=== PATIENT | female | born 2000 | race Caucasian/White ===

== ENCOUNTER 2022-02-03 18:36 | Emergency (ER) | payer OTHER, BC, SELFPAY ==
[2022-02-03 18:44] VITALS: BP 132/90; PULSE 110; RESP 18; TEMP 37.1; O2SAT 99
[2022-02-03] MEDS: Normal Saline 250 ML IV (19:00)
--- NOTE | 2022-02-03 19:00 | DI.RAD_ITS ---
Exam(s) XR PELVIS W OBLIQUES 3V EXAM: XR PELVIS W OBLIQUES 3V CLINICAL HISTORY: trauma TECHNIQUE: COMPARISON: No exams were available for comparison FINDINGS: Three views were obtained. No evidence of acute fracture or dislocation. IMPRESSION: RADIATION DOSE DELIVERED: Total DLP
[2022-02-03] MEDS: Ketorolac 30 MG/ML VIAL IVP (19:33)
--- NOTE | 2022-02-03 20:02 | DI.VRAD_ITS ---
PROCEDURE INFORMATION: Exam: XR Pelvis Exam date and time: 02/03/2022 7:40 PM Age: 21 years old Clinical indication: Other: Trauma TECHNIQUE: Imaging protocol: Radiologic exam of the pelvis. Views: 3 or more views. COMPARISON: No relevant prior studies available. FINDINGS: Bones/joints: Unremarkable. No acute fracture. Soft tissues: Unremarkable. IMPRESSION: No acute findings. Dictated and Authenticated by: Nir Hernandez MD. Ordering:MARISOL Triana MD
--- NOTE | 2022-02-03 20:13 | ED.GENADUL_ITS ---
Discharge Plan Disposition Patient Disposition: HOME Condition: Stable Discharge Details Clinical Impression: Hematoma of labia majora Primary Care Provider: [facility] Provider: Kong Feldman Home Meds and New Rx's Prescriptions: No Action No Known Home Meds Discharge Instructions Instructions: Hematoma (ED) Additional Instructions: Please continue to take ibuprofen 600 mg every 6 hours as needed for pain. You may also gently apply ice to help with some of the swelling and have light activity over the next couple days. Please return immediately to the emergency department for any inability to urinate, worsening swelling, or vaginal symptoms. It is recommended that you follow-up with [facility] for reassessment preferably in 3 days. Please call the office for arrangement of follow-up Referrals: [facility] [Provider Group] - 3 days Discharge Data Discharge Date/Time-TO BE ENTERED AT DEPARTURE: 02/03/22 20:51 Medical Decision Making Approximately an hour and a half prior to arrival patient had a mechanical fall and struck her right inner groin with I-beam. Patient denies any other injury or trauma, loss of conscious or abdominal pain. Physical exam shows significant hematoma that is very tender and swollen to the right labia majora and pelvis. Exam is otherwise unremarkable. We will check urine for and perform pelvic imaging to rule out acute pelvic fracture. Patient offered narcotics and Toradol which she refused the narcotics at this time. Review of radiological imaging and radiologist interpretation shows no acute pelvic fracture. Patient reassessed and states significant improvement of pain but swelling remains. Patient was able to urinate. Spoke with Dr. Beltrán gynecology who recommended patient be placed on NSAIDs, gently apply ice and monitor for any worsening symptoms or inability to urinate which would require return to the emergency department. This was discussed with patient and she is agreeable to this plan of care. 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 After discussion of diagnosis and plan of care patient has no further needs, questions, or concerns and states clear understanding to return to the emergency department for any worsening symptoms. This documentation was generated using [employer] system, please disregard any oddities of phrase or misspellings. HPI General Mode of arrival: ambulatory . Date/Time Provider Initiated Documentation: 02/03/22 18:37 . Limitations to Documentation: no limitations . Information obtained by: patient and RN notes reviewed . History of Present Illness 21 year old F presents to the emergency department with the chief complaint of Trauma to the genitals, described as severe, with intensity rated at 10. Quality is described as aching, and is localized to the genitals. Patient reports no radiation. Patient started experiencing this minute(s) (90) and it has been constant. No relieving factors improve symptom(s), No exacerbating factors reported . Patient notes no other symptoms.. 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 Constitutional Constitutional: Denies headache(s) ENT Ears, Nose, Mouth, and Throat: Denies headache(s) Cardiovascular Cardiovascular: Denies syncope Genitourinary Genitourinary: Reports as per HPI, Denies abnormal vaginal bleeding, Reports difficulty voiding, Denies dysuria, Denies flank pain, Denies urinary incontinence and Denies vaginal discharge Musculoskeletal Musculoskeletal: Denies abnormal gait Neurologic Neurologic: Denies abnormal gait, Denies syncope and Denies headache(s) PFSH All Active Problems (Updated 02/03/22 @ 20:34 by Kong Feldman NP) Hematoma of labia majora (Acute) Social History Smoking/Tobacco Use Status: Current-Occasional Tobacco Type: e-cigarettes Smoking risk assessment performed?: Yes Alcohol Intake: current Alcohol Intake frequency: a few times a week Drug use: Never Substance use type: does not use Do you feel safe at home: Yes Do you feel safe in your relationship?: Yes Exam Const General: cooperative Orientation: alert, awake and oriented x3 Resp Effort & Inspection: normal respiratory effort and able to speak in complete sentences Auscultation: clear to auscultation bilaterally Cardio Rate: regular rate Rhythm: regular rhythm Heart Sounds: S1 normal and S2 normal GI Palpation: soft, no hepatosplenomegaly, not firm, no guarding, no masses, no pulsatile masses, not rigid, no splenomegaly and nontender Auscultation: normal bowel sounds General: other (Exam performed with RN in room) External Female Exam: externally tender, external swelling, ecchymosis and No urethral discharge Back/Spine/Pelvis Pelvis: no pain with anterior-posterior compression, no pain with lateral compression and tenderness over symphysis pubis Neuro General: patient alert, patient awake, patient oriented x3, gait normal and moves all extremities Course Vital Signs Vital signs: Vital Signs Temperature 37.1 C 02/03/22 18:44 Pulse 110 H 02/03/22 18:44 Respiratory Rate 18 02/03/22 18:44 Blood Pressure 132/90 02/03/22 18:44 Pulse Oximetry 99 02/03/22 18:44 Temperature 37.1 C 02/03/22 18:44 Temperature Source Oral 02/03/22 18:44 Pulse 110 H 02/03/22 18:44 Respiratory Rate 18 02/03/22 18:44 Respiratory Effort Non-Labored 02/03/22 18:47 Blood Pressure 132/90 02/03/22 18:44 Blood Pressure Position Sitting 02/03/22 18:44 Pulse Oximetry 99 02/03/22 18:44 Oxygen Delivery Method Room Air 02/03/22 18:44 Oxygen Flow Rate 0 02/03/22 18:44 Lab/Test Results Lab/Test Results: POC- Test(urine) Negative PAWSS Have you Been Recently Intoxicated or Drunk Within the Last 30 days?: No Have you Ever Experienced Previous Episodes of Alcohol Withdrawal?: No Have you ever Experienced Withdrawal Seizures?: No Have you ever Experienced Delirium Tremens(DT)s?: No Have you ever undergone Alcohol Rehabilitation Treatment (i.e, inpt ot outpatient treatment programs)?: No Have you ever Experienced Blackouts?: No Have you ever Combined Alcohol with other Downers within the last 90 days?: No Have you ever Combined Alcohol with any other Substance of Abuse during the last 90 days?: No Positive Blood Alcohol level on Presentation? [PCS.BAL]: No Evidence of Increased Autonomic Activity (i.e. HR>120, tremor, sweating, agitation, nausea)?: No Result: 0
[2022-02-03] MEDS: Ibuprofen 600 MG TAB, 6 TABS/BTL PO (20:40)
[2022-02-04 02:50] VITALS: BP 115/74; PULSE 72; RESP 16; TEMP 37.1; O2SAT 97
== END 2022-02-03 20:51 | disposition home or self-care (01) ==
PROVIDERS: Emergency Provider Nurse Practitioner Family
DX: S30.23XA Contusion of vagina and vulva, initial encounter (principal); F17.290 Nicotine dependence, other tobacco product, uncomplicated; W19.XXXA Unspecified fall, initial encounter; W22.8XXA Striking against or struck by other objects, initial encounter
CPT/HCPCS: 81025; 96361; 96374; 96375; 99284; 72190; J1885